=== PATIENT | female | born 1995 | race Caucasian/White ===

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

== ENCOUNTER 2017-02-22 01:29 | Emergency (ER) | payer BC, OTHER ==
[~2017-02-22] VITALS: Ht 170.2 cm; Wt 74.8 kg
--- NOTE | 2017-02-22 01:59 | ED General ---
General Chief Complaint: Cough/Cold/Flu Symptoms Stated Complaint: POSS ALLERGIC RXN,VOMITING,CP Nursing Triage Note: PT TO ED 5 W/ C/O ALLERGY SYMPTOMS TO LT EYE ONSET SAT, WORSE TODAY. REPORTS SHE THINKS THERE IS MOLD IN HER HOME ET THIS IS THE CAUSE Source of Information: Patient History of Present Illness Time Seen by Provider: 01:44 Initial Comments PT STATES SHE WOKE UP ON Monday02/18/17 AND HAD PAIN, REDNESS TO LEFT UPPER EYELID AND CORNER OF EYE, AND HAD BLURRY VISION WENT TO URGENT CARE ON MONDAY FOR THOSE SYMPTOMS AND WAS TOLD IT WAS DUE TO ALLERGIES AND GIVEN RX FOR AN UNKNOWN EYE DROP PT STATES EYELID IS STILL RED AND PAINFUL STATES TONIGHT IMMEDIATELY PRIOR TO ARRIVAL, SHE VOMITED X 2, HAD CHEST PAIN AND FELT REAL WEAK AND STARTED HAVING A HEADACHE--SO CAME STRAIGHT HERE--THOSE SYMPTOMS ARE GONE NOW STATES SHE JUST MOVED BACK HERE AFTER [place]IV[place] IN [facility], AND THINKS THE HOUSE SHE IS LIVING IN "HAS MOLD IN THE HOUSE" AND THINKS THAT IS WHAT IS CAUSING ALL THESE SYMPTOMS PT HAS NO RESPIRATORY SYMPTOMS, NO NASAL DRAINAGE OR CONGESTION, NO COUGH OR WHEEZING NO HISTORY OF SIMILAR, AND NO HISTORY OF ALLERGIES LMP 02/11/17. NO CONTROL NO PCP PT IS A [employer] STUDENT Allergies and Home Medications Allergies Coded Allergies: No Known Drug Allergies (Unverified , 09/23/15) Home Medications Ondansetron 4 Mg Tab.rapdis, 4 MG SL Q4H, #10 Ref 1 Prescribed by: VIN SUGGS on 09/24/15 0110 Ondansetron 4 Mg Tab.rapdis, 4 MG PO Q4H, #10 Prescribed by: YASMEEN HOSKINS on 02/22/17 0216 Sulfamethoxazole/Trimethoprim 1 Each Tablet, 1 EACH PO BID, #20 Prescribed by: YASMEEN HOSKINS on 02/22/17 0216 Constitutional: see HPI, weakness EENTM: see HPI Respiratory: No cough, No short of breath, No wheezing Cardiovascular: see HPI, chest pain, No palpitations, No syncope Gastrointestinal: see HPI, No abdominal pain, nausea, vomiting Genitourinary: no symptoms reported : No Musculoskeletal: no symptoms reported Skin: no symptoms reported Psychiatric/Neurological: See HPI, Headache, Denies Numbness, Denies Paresthesia, Denies Seizure, Denies Tingling, Denies Tremors, Denies Weakness Hematologic/Lymphatic: No Symptoms Reported Immunological/Allergic: no symptoms reported Past Pjlyqrw-Yxdpcl-Eexkai Hx Patient Social History Alcohol Use: Denies Use Recreational Drug Use: No Smoking Status: Never a Smoker 2nd Hand Smoke Exposure: No Recent Foreign Travel: No Contact w/Someone Who Travel: No Recent Infectious Disease Expo: No Recent Hopitalizations: No Ebola Symptoms: Denies Symptoms Listed Seasonal Allergies Seasonal Allergies: No Surgeries History of Surgeries: Yes (LEFT SHOULDER X 2) Surgeries: Orthopedic Respiratory History of Respiratory Disorde: No Cardiovascular History of Cardiac Disorders: No Neurological History of Neurological Disord: No Reproductive System Hx Reproductive Disorders: No Sexually Transmitted Disease: No HIV/AIDS: No Gastrointestinal History of Gastrointestinal Di: No Musculoskeletal History of Musculoskeletal Dis: No Endocrine History of Endocrine Disorders: No HEENT History of HEENT Disorders: No Cancer History of Cancer: No Psychosocial History of Psychiatric Problem: Yes Behavioral Health Disorders: Anxiety, Suicide Attempts, Depression Integumentary History of Skin or Integumenta: No Blood Transfusions History of Blood Disorders: No Adverse Reaction to a Blood Tr: No Family Medical History Significant Family History: No Pertinent Family Hx Physical Exam Vital Signs Vital Sign - Last 12Hours 02/22/17 01:36 Temp 97.5 Pulse 64 Resp 20 B/P (MAP) 118/78 O2 Delivery Room Air Capillary Refill : General Appearance: No Apparent Distress, WD/WN, Other (DOES NOT APPEAR ILL OR TO BE IN ANY DISCOMFORT OR DISTRESS. PT DRESSED IN MALE CLOTHING AND UNDERWEAR. VERY HEAVY [place]. SMILING AND TALKING ON CELL PHONE. ) HEENT: PERRL/EOMI, TMs Normal, Normal ENT Inspection, Pharynx Normal, Other ( EYE EXAM IS NORMAL--NO REDNESS, NO SWELLING, NO DISCHARGE, NO TENDERNESS TO EYES OR EYELIDS OR PERIORBITAL AREAS IN GENERAL BILATERALLY. ) Neck: Full Range of Motion, Normal Inspection, Non Tender, Supple, No Lymphadenopathy (L), No Lymphadenopathy (R) Respiratory: Normal Breath Sounds, No Accessory Muscle Use, No Respiratory Distress Cardiovascular: Regular Rate, Rhythm, No Edema, No Gallop, No JVD, No Murmur, Normal Peripheral Pulses Gastrointestinal: Normal Bowel Sounds, No Organomegaly, No Pulsatile Mass, Soft , Tenderness (MILD SUPRAPUBIC TENDERNESS) Back: Normal Inspection, No CVA Tenderness, No Vertebral Tenderness Extremity: Normal Capillary Refill, Normal Inspection, Normal Range of Motion, Non Tender, No Calf Tenderness, No Pedal Edema Neurologic/Psychiatric: Alert, Oriented x3, No Motor/Sensory Deficits, Normal Mood/Affect, 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 Skin: Normal Color, Warm/Dry, No Rash, Tattoos/Piercings (MULTIPLE TATTOOS) Progress/Results/Core Measures Results/Orders Lab Results Laboratory Tests Test 02/22/17 01:52 Range/Units Urine Color YELLOW Urine Clarity SLIGHTLY CLOUDY Urine pH 6 5-9 Urine Specific [place] 1.025 H 1.016-1.022 Urine Protein 1+ H NEGATIVE Urine Glucose (UA) NEGATIVE NEGATIVE Urine Ketones 2+ H NEGATIVE Urine Nitrite NEGATIVE NEGATIVE Urine Bilirubin NEGATIVE NEGATIVE Urine Urobilinogen 1 NORMAL MG/DL Urine Leukocyte Esterase 1+ H NEGATIVE Urine RBC (Auto) NEGATIVE NEGATIVE Urine RBC NONE /HPF Urine WBC 0-2 /HPF Urine Squamous Epithelial Cells 2-5 /HPF Urine Crystals PRESENT H /LPF Urine Amorphous Sediment FEW FLORES URATES H /LPF Urine Bacteria TRACE /HPF Urine Casts NONE /LPF Urine Mucus MODERATE H /LPF Urine Culture Indicated NO My Orders Orders - YASMEEN HOSKINS DO Urine Bedside (02/22/17 01:53) Ua Culture If Indicated (02/22/17 01:53) Rx-Ondansetron Po (Rx-Zofran Po) (02/22/17 02:06) Rx-Trimeth/Sulfameth Ds Tab (Rx-Bactrim/ (02/22/17 02:07) Vital Signs/I&O Vital Sign - Last 12Hours 02/22/17 01:36 Temp 97.5 Pulse 64 Resp 20 B/P (MAP) 118/78 O2 Delivery Room Air Progress Note : Progress Note UNEVENTFUL ER STAY Departure Impression Impression: Primary Impression: Nausea and vomiting Additional Impression: UTI (urinary tract infection) Disposition: 01 HOME, SELF-CARE Condition: Stable Departure-Patient Inst. Referrals: NO,LOCAL PHYSICIAN (PCP/Family) Primary Care Physician Patient Instructions: Nausea and Vomiting, Adult (DC), Urinary Tract Infection , Adult (DC) Add. Discharge Instructions: LOTS OF CLEAR LIQUIDS--NO COFFEE, POP OR TEA TYLENOL AND MOTRIN NEEDED FOR PAIN OR FEVER FOLLOW UP WITH [facility] OR DR. OF CHOICE IN 2-3 DAYS IF NO BETTER All discharge instructions reviewed with patient and/or family. Voiced understanding. Scripts Ondansetron (Zofran Odt) 4 Mg Tab.rapdis 4 MG PO Q4H for Nausea/Vomiting, #10 TAB Prov: YASMEEN HOSKINS DO 02/22/17 Sulfamethoxazole/Trimethoprim (Bactrim Ds Tablet) 1 Each Tablet 1 EACH PO BID, #20 TAB Prov: YASMEEN HOSKINS DO 02/22/17 Work/School Note: Local Medical Staff Listing YASMEEN HOSKINS DO Feb 22, 2017 01:59
[2017-02-22 02:00] LABS: BILIRUBIN,URINE NEGATIVE (NEGATIVE); KETONES,URINE 2+ (NEGATIVE); LEUKOCYTE ESTERASE ,URINE 1+ (NEGATIVE); NITRITE,URINE NEGATIVE (NEGATIVE); PH,URINE 6 (5-9); PROTEIN,URINE 1+ (NEGATIVE); UROBILINOGEN,URINE 1 MG/DL (NORMAL)
[2017-02-22] MEDS ORDERED: RX-ONDANSETRON 4 MG ODT (ZOFRAN) PPK #4 ONE (02:06)
[2017-02-22 02:07] LABS: WBC,URINE 0-2 /HPF
[2017-02-22] MEDS ORDERED: RX-TRIMETH/SULFA. 160-800 MG (BACTRIM DS) TAB PPK#2 PO ONE (02:07)
[2017-02-22] MEDS ORDERED: SULF1TAB35 PO (02:16)
[2017-02-22] MEDS ORDERED: ONDA4TAB8 PO (02:16)
== END 2017-02-22 02:17 | disposition home or self-care (01) ==
LOC: EDUNIT# 01:29 → ER 01:34
DX: F41.9 Anxiety disorder, unspecified; Z91.5 Personal history of self-harm; N39.0 Urinary tract infection, site not specified; F32.9 Major depressive disorder, single episode, unspecified
CPT/HCPCS: 81000; 84703; 99282

== ENCOUNTER 2017-04-13 20:23 | Emergency (ER) | payer BC, OTHER ==
[~2017-04-13] VITALS: Ht 170.2 cm; Wt 77.1 kg
[~2017-04-13 20:23] MED LIST changes: +ONDA4TAB8 PO; +SULF1TAB35 PO
[2017-04-13] MEDS ORDERED: fentaNYL INJECTION 100 MCG/2 ML AMP IVP STA (21:03)
[2017-04-13] MEDS ORDERED: NS IV 1000 ML 1,000 ML IV ONE (21:03)
--- NOTE | 2017-04-13 21:13 | ED Abdominal Pain ---
General Chief Complaint: General Problems/Pain Stated Complaint: CP,DIARRHEA Nursing Triage Note: PT STATES HAVING A BUMP ON HER STERNUM FOR OVER 10 YEARS, "IT MAKES IT HARD TO BREATHE," PT WAS SEEN AT [facility] FOR THE SAME. PT IS ALSO COMPLAINING OF BLACK STOOLS SINCE YESTERDAY. Source of Information: Patient, Family Exam Limitations: No Limitations History of Present Illness Time Seen By Provider: 20:48 Initial Comments 21 yo female patient presents to the ED with c/o epigastric pain, a knot over the lower sternum, lower abdominal pain and black stools. Patient does have a h /o peptic ulcers when she was younger. Onset of black stools was yesterday. Patient was seen by [facility] on the for the same complaint and diagnosed with costochondritis. States labs, an EKG, and CXR was done which were negative. Patient was given a Rx for naprosyn, but unable to get the medication before the holidays. She has been taking motrin 800 mg po TID for the pain instead. Denies palpitations, N/V/D, fever, SOA, cough, or congestion. Patient states the bump over the lower sternum has been present for approximately 10 yrs and makes it hard to breath due to increased pain with deep breaths. Timing/Duration: Other (see HPI.) Location: Epigastric ((burning pain)), Other (lower abdomen aching. ) Activities at Onset: None Modifying Factors: Worsens With Analgesics, Worsens With Breathing, Worsens With Eating, Worsens With Movement, Worsens With Palpation Allergies and Home Medications Allergies Coded Allergies: No Known Drug Allergies (Unverified , 09/23/15) Home Medications Omeprazole 40 Mg Capsule.dr, 40 MG PO BID, #60 Ref 0 Prescribed by: SHI CHINCHILLA on 04/13/17 2308 Ondansetron 4 Mg Tab.rapdis, 4 MG SL Q4H, #10 Ref 1 Prescribed by: VIN SUGGS on 09/24/15 0110 Ondansetron 4 Mg Tab.rapdis, 4 MG PO Q4H, #10 Prescribed by: YASMEEN HOSKINS on 02/22/17 0216 Orphenadrine Citrate 100 Mg Tablet.er, 100 MG PO BID PRN for SPASMS, #10 Ref 0 Prescribed by: SHI CHINCHLILA on 04/13/172307 Prednisone 20 Mg Tab, 40 MG PO DAILY, #10 Ref 0 Prescribed by: SHI CHINCHILLA on 04/13/172307 Sucralfate 1 Gm/10 Ml Oral.susp, 1 GM PO ACHS, #560 Ref 0 Prescribed by: SHI CHINCHILLA on 04/13/172307 Sulfamethoxazole/Trimethoprim 1 Each Tablet, 1 EACH PO BID, #20 Prescribed by: YASMEEN HOSKINS on 02/22/17 0216 Review of Systems Constitutional: No chills, No diaphoresis, No dizziness, No fever, No malaise, No weakness EENTM: No Symptoms Reported Respiratory: Denies Cough, Denies Orthopnea, Denies Shortness of Air, Denies SOA With Exertion Cardiovascular: See HPI, Chest Pain, Denies Irregular Heart Rate, Denies Lightheadedness, Denies Palpitations, Denies Syncope Gastrointestinal: See HPI, Denies Abdomen Distended, Abdominal Pain, Denies Blood Streaked Stools, Denies Constipated, Denies Diarrhea, Denies Nausea, Poor Appetite, Denies Poor Fluid Intake, Denies Vomiting, Other (black stools.) Genitourinary: Denies Burning, Denies Discharge, Denies Frequency, Denies Flank Pain, Denies Hematuria, Denies Pain Musculoskeletal: see HPI, No back pain, No neck pain Skin: No change in color, lumps, No rash Psychiatric/Neurological: No Symptoms Reported Endocrine: No Symptoms Reported All Other Systems Reviewed Negative Unless Noted: Yes (Negative excepted noted.) Past Wrfhqmj-Rlyjmy-Eikeyq Hx Patient Social History Alcohol Use: Denies Use Recreational Drug Use: No Smoking Status: Never a Smoker 2nd Hand Smoke Exposure: No Recent Foreign Travel: No Contact w/Someone Who Travel: No Recent Hopitalizations: No Seasonal Allergies Seasonal Allergies: No Surgeries History of Surgeries: Yes (LEFT SHOULDER X 2) Surgeries: Orthopedic Respiratory History of Respiratory Disorde: No Cardiovascular History of Cardiac Disorders: No Neurological History of Neurological Disord: No Reproductive System Hx Reproductive Disorders: No Sexually Transmitted Disease: No HIV/AIDS: No Genitourinary History of Genitourinary Disor: No Gastrointestinal History of Gastrointestinal Di: Yes Gastrointestinal Disorders: Ulcer Musculoskeletal History of Musculoskeletal Dis: No Endocrine History of Endocrine Disorders: No HEENT History of HEENT Disorders: No Cancer History of Cancer: No Psychosocial History of Psychiatric Problem: Yes Behavioral Health Disorders: Anxiety, Suicide Attempts, Depression Integumentary History of Skin or Integumenta: No Blood Transfusions History of Blood Disorders: No Adverse Reaction to a Blood Tr: No Reviewed Nursing Assessment Reviewed/Agree w Nursing PMH: Yes Family Medical History Significant Family History: Other Conditions/Hx (thyroid goiters and thyroid disease) Physical Exam Vital Signs VS - Last 72 Hours, by Label 04/13/17 20:34 Temp 97.3 Pulse 72 Resp 18 B/P (MAP) 122/80 O2 Delivery Room Air Capillary Refill : General Appearance: WD/WN, no apparent distress, other (moves without difficulty.) HEENT: PERRL/EOMI, normal ENT inspection, TMs normal, pharynx normal Neck: non-tender, full range of motion, supple, normal inspection Respiratory: lungs clear, normal breath sounds, no respiratory distress, no accessory muscle use, other (anterior lower sternum ttp with a soft tissue swelling without dimpling, erythema, ecchymosis, or warmth. left anterior, posterior, and lateral lower ribs TTP without evidence of trauma. ) Cardiovascular: normal peripheral pulses, regular rate, rhythm, no edema, no gallop, no murmur Gastrointestinal: normal bowel sounds, soft, no organomegaly, No distended, guarding (epigastric guarding), No rebound, tenderness (epigastric and generalized lower abdominal tenderness. ) Extremities: no pedal edema, normal capillary refill Back: normal inspection, no vertebral tenderness, No decreased range of motion , muscle spasm (left upper and mid back muscle spasm and tenderness.) Neurologic/Psychiatric: alert, normal mood/affect, oriented x 3 Skin: normal color, warm/dry, No ecchymosis, No rash Progress/Results/Core Measures Results/Orders Lab Results Laboratory Tests Test 04/13/17 21:18 04/13/17 21:42 Range/Units White Blood Count 11.6 H 4.3-11.0 10^3/uL Red Blood Count 3.89 L 4.35-5.85 10^6/uL Hemoglobin 11.3 L 11.5-16.0 G/DL Hematocrit 34 L 35-52 % Mean Corpuscular Volume 87 80-99 FL Mean Corpuscular Hemoglobin 29 25-34 PG Mean Corpuscular Hemoglobin Concent 33 32-36 G/DL Red Cell Distribution Width 14.0 10.0-14.5 % Platelet Count 241 130-400 10^3/uL Mean Platelet Volume 11.1 H 7.4-10.4 FL Neutrophils (%) (Auto) 62 42-75 % Lymphocytes (%) (Auto) 27 12-44 % Monocytes (%) (Auto) 7 0-12 % Eosinophils (%) (Auto) 3 0-10 % Basophils (%) (Auto) 0 0-10 % Neutrophils # (Auto) 7.1 1.8-7.8 X 10^3 Lymphocytes # (Auto) 3.2 1.0-4.0 X 10^3 Monocytes # (Auto) 0.8 0.0-1.0 X 10^3 Eosinophils # (Auto) 0.4 H 0.0-0.3 10^3/uL Basophils # (Auto) 0.0 0.0-0.1 10^3/uL Sodium Level 140 135-145 MMOL/L Potassium Level 3.7 3.6-5.0 MMOL/L Chloride Level 107 98-107 MMOL/L Carbon Dioxide Level 24 21-32 MMOL/L Anion Gap 9 5-14 MMOL/L Blood Urea Nitrogen 10 7-18 MG/DL Creatinine 0.66 0.60-1.30 MG/DL Estimat Glomerular Filtration Rate > 60 BUN/Creatinine Ratio 15 Glucose Level 93 70-105 MG/DL Calcium Level 8.9 8.5-10.1 MG/DL Total Bilirubin 0.2 0.1-1.0 MG/DL Aspartate Amino Transf (AST/SGOT) 19 5-34 U/L Alanine Aminotransferase (ALT/SGPT) 18 0-55 U/L Alkaline Phosphatase 74 40-136 U/L Troponin I < 0.30 <0.30 NG/ML Total Protein 6.6 6.4-8.2 GM/DL Albumin 3.7 3.2-4.5 GM/DL TSH [place] Testing 2.50 0.35-4.94 UIU/ML Urine Color YELLOW Urine Clarity CLEAR Urine pH 5 5-9 Urine Specific [place] 1.015 L 1.016-1.022 Urine Protein NEGATIVE NEGATIVE Urine Glucose (UA) NEGATIVE NEGATIVE Urine Ketones NEGATIVE NEGATIVE Urine Nitrite NEGATIVE NEGATIVE Urine Bilirubin NEGATIVE NEGATIVE Urine Urobilinogen 1 NORMAL MG/DL Urine Leukocyte Esterase NEGATIVE NEGATIVE Urine RBC (Auto) 3+ H NEGATIVE Urine RBC 0-2 /HPF Urine WBC RARE /HPF Urine Squamous Epithelial Cells 2-5 /HPF Urine Crystals NONE /LPF Urine Bacteria NEGATIVE /HPF Urine Casts NONE /LPF Urine Mucus NEGATIVE /LPF Urine Culture Indicated NO My Orders Orders - SHI CHINCHILLA PA Cbc With Automated Diff (04/13/17 21:03) Comprehensive Metabolic Panel (04/13/17 21:03) Thyroid Analyzer (04/13/17 21:03) Troponin I (04/13/17 21:03) Ua Culture If Indicated (04/13/17 21:03) Saline Lock/Iv-Start (04/13/17 21:03) Urine Bedside (04/13/17 21:03) Ekg Tracing (04/13/17 21:) Chest 1 View, Ap/Pa Only (04/13/17 21:03) Ns Iv 1000 Ml (Sodium Chloride 0.9%) (04/13/17 21:03) Lidocaine 2% Viscous 15 Ml (Xylocaine Vi (04/13/17 21:15) Antacid Suspension (Mylanta Suspension (04/13/17 21:15) Pantoprazole Injection (Protonix Injecti (04/13/17 21:15) Fentanyl Injection (Sublimaze Injection (04/13/17 21:03) Medications Given in ED Current Medications Medications Dose Ordered Sig/Mark Route Start Time Stop Time Status Last Admin Dose Admin Al Hydrox/Mg Hydrox/Simethicone 30 ml ONCE ONCE PO 04/13/17 21:15 04/13/17 21:16 DC 04/13/17 21:18 30 ML Lidocaine HCl 15 ml ONCE ONCE PO 04/13/17 21:15 04/13/17 21:16 DC 04/13/17 21:18 15 ML Pantoprazole 40 mg ONCE ONCE IV 04/13/17 21:15 04/13/17 21:16 DC 04/13/17 21:17 40 MG Sodium Chloride 1,000 ml @ 0 mls/hr Q0M ONCE IV 04/13/17 21:03 04/13/17 21:06 DC 04/13/17 21:18 1,000 MLS/HR Vital Signs/I&O Vital Sign - Last 12Hours 04/13/17 20:34 Temp 97.3 Pulse 72 Resp 18 B/P (MAP) 122/80 O2 Delivery Room Air Intake and Output 04/14/17 00:00 Intake Total 1000 ml Balance 1000 ml ECG Initial ECG Impression Date: Apr 13, 2017 Initial ECG Impression Time: 21:13 Initial ECG Rate: 74 Initial ECG Rhythm: Normal Sinus Initial ECG Intervals: Normal Initial ECG Impression: Normal Initial ECG Comparisson: No Previous ECG Available Comment normal sinus rhythm without STEMI. ECG reviewed with Dr. Martinez. Diagnostic Imaging Diagonstic Imaging: Xray Plain Films/CT/US/NM/MRI: chest Reviewed: Reviewed by Me (radiology report reviewed by me) Departure Communication (Admissions) Progress Notes diagnostic and laboratory findings discussed with the patient. patient reports symptoms are improved with the medications given. plan for discharge to home. All return precautions were discussed with the patient as described in the discharge instructions of this report. Patient verbalizes understanding and agrees with the treatment plan. Impression Impression: Primary Impression: Gastritis due to nonsteroidal anti-inflammatory drug (NSAID) Additional Impressions: Lipoma of chest wall Costochondritis Disposition: HOME, SELF-CARE Condition: Improved Departure-Patient Inst. Decision time for Depature: 23:05 Referrals: MALCOLM LEE DO [facility] (PCP) Primary Care Physician Patient Instructions: Costochondritis (DC), Gastritis (DC), Lipoma , Muscle Strain (DC), Ulcer and Gastritis Diet Add. Discharge Instructions: All discharge instructions reviewed with patient and/or family. Voiced understanding. Medications as instructed. Tylenol Extra Strength beep-[id number] as directed for pain as directed by the manufacturing test technician. Ice packs or heating pads as needed for pain and muscle strain. Avoid NSAIDs (motrin, aleve, advil, naprosyn, mobic), aspirin, fatty foods, spicy foods, carbonated beverages, caffeinated beverages, smoking, secondhand smoke, alcohol. Do not eat within 2 hours of lying down. Elevate the head of the bed if needed. Follow-up with the family practitioner of your choice for establishing care, possible need for outpatient MRI, and recheck. Call for appointment time tomorrow morning. Follow-up with the general surgeon of your choice for lipoma removal possible need for upper endoscopy. Consider seeing a chiropractor and/or massage therapist for symptoms. Return to the emergency department for worsened pain, vomiting, vomiting blood, black stools, abdominal swelling, fever, shortness of air, chest pain, or any other concerns. Scripts Sucralfate (Carafate) 1 Gm/10 Ml Oral.susp 1 GM PO ACHS, #560 ML 0 Refills Prov: SHI CHINCHILLA 04/13/17 Omeprazole (Omeprazole) 40 Mg Capsule.dr 40 MG PO BID, #60 CAP 0 Refills Prov: SHI CHINCHILLA 04/13/17 Orphenadrine Citrate (Orphenadrine Citrate) 100 Mg Tablet.er 100 MG PO BID Y for SPASMS, #10 TAB 0 Refills Prov: SHI CHINCHILLA 04/13/17 Prednisone (Prednisone) 20 Mg Tab 40 MG PO DAILY, #10 TAB 0 Refills Prov: SHI CHINCHILLA 04/13/17 Work/School Note: Local [employer] Listing SHI CHINCHILLA Apr 13, 2017 21:13
[2017-04-13] MEDS ORDERED: ANTACID SUSP 30 ML UDC (MYLANTA) PO ONE (21:15)
[2017-04-13] MEDS ORDERED: LIDOCAINE 2% VISCOUS 15 ML UDC PO ONE (21:15)
[2017-04-13] MEDS ORDERED: PANTOPRAZOLE 40 MG/10 ML (PROTONIX) VIAL IV ONE (21:15)
[2017-04-13 21:30] LABS: BASOPHILS % (AUTO) 0 % (0-10); EOSINOPHILS # (AUTO) 0.4 10^3/uL (0.0-0.3); EOSINOPHILS % (AUTO) 3 % (0-10); LYMPHOCYTES # (AUTO) 3.2 X 10^3 (1.0-4.0); LYMPHOCYTES % (AUTO) 27 % (12-44); MEAN CORPUSCULAR HEMOGLOBIN 29 PG (25-34); MEAN CORPUSCULAR HGB CONC 33 G/DL (32-36); MEAN CORPUSCULAR VOLUME 87 FL (80-99); MEAN PLATELET VOLUME 11.1 FL (7.4-10.4); MONOCYTES # (AUTO) 0.8 X 10^3 (0.0-1.0); MONOCYTES % (AUTO) 7 % (0-12); NEUTROPHILS # (AUTO) 7.1 X 10^3 (1.8-7.8); NEUTROPHILS % (AUTO) 62 % (42-75); PLATELET COUNT 241 10^3/uL (130-400); RED BLOOD COUNT 3.89 10^6/uL (4.35-5.85); WHITE BLOOD COUNT 11.6 10^3/uL (4.3-11.0)
[2017-04-13 21:49] LABS: BILIRUBIN,URINE NEGATIVE (NEGATIVE); KETONES,URINE NEGATIVE (NEGATIVE); LEUKOCYTE ESTERASE ,URINE NEGATIVE (NEGATIVE); NITRITE,URINE NEGATIVE (NEGATIVE); PH,URINE 5 (5-9); PROTEIN,URINE NEGATIVE (NEGATIVE); UROBILINOGEN,URINE 1 MG/DL (NORMAL)
[2017-04-13 21:52] LABS: ALANINE AMINOTRANSFERASE 18 U/L (0-55); ALBUMIN 3.7 GM/DL (3.2-4.5); ANION GAP 9 MMOL/L (5-14); ASPARTATE AMINO TRANSFERASE 19 U/L (5-34); BILIRUBIN,TOTAL 0.2 MG/DL (0.1-1.0); BLOOD UREA NITROGEN 10 MG/DL (7-18); BUN/CREATININE RATIO 15; CALCIUM 8.9 MG/DL (8.5-10.1); CARBON DIOXIDE 24 MMOL/L (21-32); CHLORIDE 107 MMOL/L (98-107); CREATININE SERUM 0.66 MG/DL (0.60-1.30); GFR ESTIMATED > 60; GLUCOSE 93 MG/DL (70-105); POTASSIUM 3.7 MMOL/L (3.6-5.0); SODIUM 140 MMOL/L (135-145); TOTAL PROTEIN 6.6 GM/DL (6.4-8.2)
[2017-04-13 21:56] LABS: WBC,URINE RARE /HPF
--- NOTE | 2017-04-13 22:02 | Diagnostic Imaging Report ---
EXAM: Chest 1 view, AP/PA only. INDICATION: Shortness of breath. COMPARISON: None. FINDINGS: Normal heart size and pulmonary vascularity. No focal pulmonary opacity, pleural effusion or pneumothorax. Osseous structures are unremarkable. IMPRESSION: Negative chest. Dictated by: Dictated on workstation # [id number]
[2017-04-13 22:12] LABS: TROPONIN I < 0.30 NG/ML (<0.30)
[2017-04-13] MEDS ORDERED: OMEP40CA36 PO (23:08)
[2017-04-13] MEDS ORDERED: ORPH100T PO (23:08)
[2017-04-13] MEDS ORDERED: PRD20T PO (23:08)
[2017-04-13] MEDS ORDERED: SUCR1ORA5 PO (23:08)
== END 2017-04-13 23:19 | disposition home or self-care (01) ==
LOC: EDUNIT# 20:23 → ER 20:25
DX: K29.60 Other gastritis without bleeding (principal); T39.395A Adverse effect of other nonsteroidal anti-inflammatory drugs [NSAID], initial encounter; D17.1 Benign lipomatous neoplasm of skin and subcutaneous tissue of trunk; M79.0 Rheumatism, unspecified; F41.9 Anxiety disorder, unspecified; F32.9 Major depressive disorder, single episode, unspecified; Z91.5 Personal history of self-harm; Z87.19 Personal history of other diseases of the digestive system
CPT/HCPCS: 36415; 71010; 80053; 81000; 84443; 84484; 84703; 85025

== ENCOUNTER → 2017-04-27 | Outpatient (CLI) | payer BC, OTHER ==
[~2017-04-27] MED LIST changes: +OMEP40CA36 PO; +ORPH100T PO; +PRD20T PO; +SUCR1ORA5 PO
--- NOTE | 2017-04-27 08:36 | Diagnostic Imaging Report ---
PROCEDURE: US Gallbladder. TECHNIQUE: Multiple real-time grayscale images were obtained over the right upper quadrant in various projections. INDICATION: Right upper quadrant abdominal pain. FINDINGS: Grayscale imaging of the gallbladder reveals no intraluminal filling defect. There is no gallbladder wall thickening or pericholecystic fluid. No intra or extrahepatic biliary ductal dilatation is identified. Pancreas is obscured, however, visualized right kidney is unremarkable. There is no evidence of ascites. IMPRESSION: Unremarkable gallbladder ultrasound. Dictated by: Dictated on workstation # [id number]
== END ==
LOC: RAD 07:00
PROVIDERS: ATTEND Nurse Practitioner Family
DX: R10.11 Right upper quadrant pain (principal)
CPT/HCPCS: 76705